=== PATIENT | male | born 1935 | race Caucasian/White ===

== ENCOUNTER → 2024-07-21 13:37 | Outpatient (REF) | payer OTHER, SELFPAY | LOC: RAD 13:37 | PROVIDERS: ATTENDING PHYSICIAN Nurse Practitioner Family | DX: M25.512 Pain in left shoulder (principal) | CPT/HCPCS: 73030 ==

== ENCOUNTER 2024-09-25 20:00 | Inpatient (IN) | payer OTHER, SELFPAY ==
[2024-09-25 15:21] VITALS: BP 155/79
[2024-09-25] MEDS: MORPHINE SULFATE 4 MG IV ×2 (16:18→19:01)
[2024-09-25 16:37] LABS: % Basophils 0.4 % (0-2); % Eosinophils 1.2 % (0-6); % Immature Granulocytes 0.6 % (0-0.5); % Lymphocytes 7.9 % (20.5-51.1); % Monocytes 8.4 % (1.7-9.3); % Neutrophils 81.5 % (42.2-75.2); Absolute Eosinophils 0.1 10^3/uL (0-0.7); Absolute Immature Granulocytes 0.1 10^3/uL (0-0.05); Absolute Lymphocytes 0.9 10^3/uL (1.2-3.4); Absolute Monocytes 0.9 10^3/uL (0.1-0.6); Absolute Neutrophils 8.9 10^3/uL (1.4-6.5); Hematocrit 39.5 % (39.0-52.0); Hemoglobin 13.5 g/dL (13.0-18.0); Mean Corp Hgb Conc. 34.2 g/dL (33.0-37.0); Mean Corpuscular Hgb 31.8 pg (27.0-31.0); Mean Corpuscular Volume 92.9 fL (80.0-94.0); Mean Platelet Volume 10.8 fL (7.4-10.4); Nucleated Red Blood Cells % 0 % (-); Platelet Count 259 10^3/uL (130-400); Red Blood Cell Count 4.25 10^6/uL (4.70-6.10); White Blood Cell Count 10.9 10^3/uL (4.8-10.8)
--- NOTE | 2024-09-25 16:39 | ED.GENMED ---
History of Present Illness
General
Chief Complaint: Musculo-Skeletal Complaint
Source: patient, spouse and family
Exam Limitations: none
Time Seen by Provider: 09/25/24 16:12
History of Present Illness
History of Present Illness:
This an 89-year-old male who presents after a fall at home. Patient states he does not really know what happened but was sitting outside and then realized he was on the ground. He states he did remember trying to get up. He states once he was on
the ground he had somewhat difficulty. He thinks he did hit his head. He cannot really recall whether he passed out or not. No chest pain. Does report left shoulder pain. Denies neck or head pain. No vomiting. No motor weakness.
Past History
Past History
ED Past Medical History: CAD, Cancer (Rectal CA, Skin CA), Hypercholesterolemia, [place] and Other (Renal calculus, Glaucoma, )
ED Past Surgical History: Cholecystectomy, Orthopedic (Right knee tear, Left shoulder surgery) and Other (Stent artery, Nodules removed from neck)
Social History
Tobacco: Smoker
Alcohol: None
Personal:
Living: with family
Phy Exam
Physical Exam
Physical Exam:
CONSTITUTIONAL Patient alert and oriented to person, place and time. Well-appearing. Vital signs reviewed.
HEAD atraumatic, normocephalic.
EYES eyelids normal to inspection, Extraocular muscles intact, Conjunctiva normal, Sclera normal.
NECK normal range of motion, Trachea midline, no jugular venous distention. No midline tenderness
RESPIRATORY CHEST No respiratory distress noted, Chest expansion equal, Bilateral breath sounds clear. No chest wall tenderness
CARDIOVASCULAR regular rate and rhythm, Heart sounds normal.
ABDOMEN abdomen nontender, Bowel sounds normal. No distention.
UPPER EXTREMITY Motor strength normal, no cyanosis, no edema. Marked swelling at the left shoulder joint with fluctuance suspicious for hemarthrosis. Unable to range the left shoulder due to deformity and pain. Obvious deformity. Small
abrasion to the left elbow
LOWER EXTREMITY range of motion normal (normal internal and external rotation of the hip bilaterally. Normal flexion of the hips), Motor strength normal, no cyanosis, no edema.
NEURO Speech normal, No focal motor deficits, Salma coma scale 15, Memory normal, Cranial Nerves intact to screening exam.
SKIN skin warm, dry, and normal in color.
Course
Orders/Labs/Results
Orders:
Orders
09/25/24 15:28
CR Shoulder, Trauma - Left Urgent
Reason For Exam: pain/injury
09/25/24 16:13
Morphine Sulfate 4 mg .ROUTE .STK-MED ONE
09/25/24 16:18
Morphine Sulfate 4 mg IV NOW STA
09/25/24 16:22
CBC/With Diff [Complete Blood Count/With Diff] Urgent
CMP [Comprehensive Metabolic Panel] Urgent
09/25/24 16:38
Electrocardiogram (*1) Urgent
Reason for Study: Syncope
CT Head W/o Iv Contrast Urgent
Comment:
Reason For Exam: fall, ? syncope
EKG- Treatment ONCE
Sling Left-Treatment ONCE
09/25/24 16:41
CR Elbow - Left Min 2 View Urgent
Reason For Exam: fall
09/25/24 18:58
Morphine Sulfate 4 mg IV NOW STA
09/25/24 19:39
Admit/Transfer Patient As Directed
Co-Sign Provider:
Level of Care: Inpatient admission
Assign to:: Telemetry
Physician / Group: Kevin
Diagnosis: Left Shoulder Fx
Reason for Telemetry: Syncope
Date to Stop Telemetry: 09/27/24
Time to Stop Telemetry: 11:00
Reason for Hospitalization: Ortho Consult, Syncope work-up
Expected length of stay greater than two midnights?: Yes
ELOS- Estimated Length of Stay in days: 3
I certify the patient meets the requirements for IP care: Yes
PRN Pain Medication Management As Directed
May give lesser potent ordered pain med per pt: Yes
preference::
Protocol:: Medication orders for pain may be administered in a
manner that supports deferring to patient preference
when the pt is:
- Requesting an ordered lesser potent pain medication.
Least to most potent pain medications are defined
as: acetaminophen < NSAID < tramadol < opioids
(morphine, oxycodone, hydromorphone).
- Requesting a lesser dose of the same medication IF
ORDERED.
- Requesting a less intrusive route of administration
if both routes are prescribed by the provider (PO <
IV).
09/25/24 19:41
CT Upper Ext W/o Iv Cont Lt Urgent
Comment: ortho request
Reason For Exam: humerus fracture
09/25/24 19:42
Code Status As Directed
Resuscitation Status: Full Code
09/27/24 11:00
DC Protocol for Telemetry ONCE
Abnormal Lab Results
09/25/24
16:22
WBC 10.9 H 10^3/uL
(4.8-10.8)
RBC 4.25 L 10^6/uL
(4.70-6.10)
MCH 31.8 H pg
(27.0-31.0)
MPV 10.8 H fL
(7.4-10.4)
Abs Immat Gran (auto) 0.1 H 10^3/uL
(0-0.05)
Absolute Neuts (auto) 8.9 H 10^3/uL
(1.4-6.5)
Absolute Lymphs (auto) 0.9 L 10^3/uL
(1.2-3.4)
Absolute Monos (auto) 0.9 H 10^3/uL
(0.1-0.6)
Immature Gran % 0.6 H %
(0-0.5)
Neutrophils % 81.5 H %
(42.2-75.2)
Lymphocytes % 7.9 L %
(20.5-51.1)
Glucose 126 H mg/dl
(70-99)
09/25/24 16:22
09/25/24 16:22
Vital Signs
Initial and Last Documented VS:
Initial Vital Signs
Temp Pulse Resp BP Pulse Ox
98.4 F 62 22 155/79 99
09/25/24 15:21 09/25/24 15:21 09/25/24 15:21 09/25/24 15:21 09/25/24 15:21
Last Documented Vital Signs
Temp Pulse Resp BP Pulse Ox
98.4 F 82 16 145/75 98
09/25/24 15:21 09/25/24 19:30 09/25/24 19:30 09/25/24 19:02 09/25/24 19:30
MDM/Problems Addressed
MDM/Problems Addressed:
Humeral fracture, possible syncope
*Radiology
Radiology exam reviewed: preliminary read by ED provider (Obvious humeral fracture)
*Pulse Oximetry
Patient hypoxic: no
*EKG
Interpreted by ED Provider?: Yes
Interpretation: normal
Comparison EKG: no comparison EKG present
Rate: normal
Rhythm: sinus
[place]: normal axis
Interval: first degree heart block
Ischemia: no ischemia
*Aged Or Disabled Care Worker Interpretation
Rate: normal
Interpretation: normal
Rhythm: sinus
*Critical Care Note
Total Time (30-74mins, 75-104mins- exclusive of procedures): Not Applicable
Data Reviewed
Source: patient and family
Further Testing Considered But Not Given:
Consider neck CT but no midline tenderness
Patient Management
Discussion with other providers: Hospitalist and [employer] (Case discussed with Dr. Rubalcava)
Escalation/DeEscalation of care consider admission/obs:
Patient unable to move in the bed without significant pain. Unable to get up. Uses a cane and walker at home. Will likely need some PT and orthopedic evaluation. Dr. Rubalcava recommends CT.
ED Attending Note
-
Portions of this chart may have been created with voice recognition software.� Occasional wrong word or��sound alike� substitutions may have occurred due to the inherent limitations of voice recognition software.
Discharge Plan
Departure
Patient Disposition: Admit
Date of Disposition: 09/25/24
Time of Disposition: 19:06
Admit to: Telemetry
Presentation/result/management discussed w/ accepting MD/DO: Hospitalist
Discharge Problem:
Syncope, Fracture, humerus closed
Prescriptions:
No Action
metoprolol tartrate 25 MG tablet
25 mg PO BID
latanoprost 1 DROP drops
1 drp BOTH EYES HS
ascorbic acid (vitamin C) [Vitamin C] 500 MG tablet
500 mg PO DAILYPRN PRN (Reason: Supplement)
coenzyme Q10 50 MG tablet,chewable
50 mg PO DAILYPRN PRN (Reason: Supplement)
vitamin B complex Capsule
1 cap PO DAILYPRN PRN (Reason: Supplement)
omega 8-mui-crj-fish oil [Fish Oil] 1,000 mg (120 mg-180 mg) Capsule
1 cap PO DAILYPRN PRN (Reason: Supplement)
cholecalciferol (vitamin D3) 25 mcg (1,000 unit) Tablet
25 mcg PO DAILYPRN PRN (Reason: Supplement)
Referrals:
Jarrett Willis MD [Family Provider] -
Interventions
Interventions:
*Risk Screen - Suicide Last Done: 09/25/24 15:21
*General Assessment Last Done: 09/25/24 15:21
*Neglect/Abuse Screening Last Done: 09/25/24 15:21
*ED COVID-19 Vaccine History Last Done: 09/25/24 17:21
ED-Musculoskeletal Assessment Last Done: 09/25/24 17:21
Discharge Date and Time
Print Language: MONGOLIAN
[2024-09-25 16:47] LABS: ALT (SGPT) 20 U/L (0-50); AST (SGOT) 28 U/L (17-59); Albumin 4.2 g/dl (3.5-5.0); Alkaline Phosphatase 74 U/L (38-126); Blood Urea Nitrogen 13 mg/dl (9-20); Calcium 9.4 mg/dl (8.4-10.2); Carbon Dioxide 22 mmol/L (22-30); Chloride 104 mmol/L (98-107); Estimated Creatinine Clearance 60 ml/min; Glucose 126 mg/dl (70-99); Potassium 3.8 mmol/L (3.5-5.1); Sodium 140 mmol/L (135-145); Total Bilirubin 0.6 mg/dl (0.2-1.3); Total Protein 6.6 g/dl (6.3-8.2); eGFR > 60.00
[2024-09-25 18:00] VITALS: BP 143/89
[2024-09-25 19:02] VITALS: BP 145/75
--- NOTE | 2024-09-25 19:18 | HPS.HSE ---
Family Physician
-
Family Physician: Jarrett Willis
Chief Complaint
-
Fall with Left Shoulder Pain
History of Present Illness
Patient is an 89 y/o male past medical history of coronary artery disease, hypertension, hyperlipidemia, rectal and lung cancer who presents with left shoulder pain following a fall. Patient reports he was on the patio and had finished smoking a
cigarette. He doesn't remember much about about the fall and thinks he may have blacked out. He reports waking up while he was falling and knew he as going to hit the concrete. Following the fall he developed significant left shoulder pain. He
denies any preceding chest pain, palpitations, lightheadedness or dizziness.
Medical History
Past Medical History
Past Medical History: Reports Other
Additional Past Medical History:
Coronary Artery Disease s/p Stent
Essential Hypertension
Hyperlipidemia
Hx Rectal CA s/p chemo and radiation
Hx Oracio CA s/p radiation
Hx E. coli Bacteremia secondary to Ascending Cholangitis
Past Surgical History: Reports Other
Additional Past Surgical History:
Cardiac Stent
Cholecystectomy
Right Knee Tear
Left Shoulder Surgery
Left Shoulder/Back Lumpectomy
Throat Nodes
Social History
Tobacco: Smoker (6-8 cigarettes per day)
Alcohol: Occasional
Family History
Family History: Not pertinent
Allergies / Home Medications
Allergies reflects when Allergies were last updated in [employer].
Home Medications with original date entered in [employer]
Allergy/Medication List:
Allergies
Allergy/AdvReac Type Severity Reaction Status Date / Time
aloe vera [Aloe Vera] Allergy HIVES, Verified 09/25/24 15:21
SWELLING
Penicillins Allergy Hives/SWELL Verified 09/25/24 15:21
ING
Home Medications
latanoprost 0.005 % eye drops 1 drp BOTH EYES HS Eye condition 07/16/21
metoprolol tartrate 25 mg tablet 25 mg PO BID Blood pressure 07/16/21
ascorbic acid (vitamin C) 500 mg tablet (Vitamin C) 500 mg PO DAILYPRN PRN Supplement 04/20/22
coenzyme Q10 50 mg chewable tablet 50 mg PO DAILYPRN PRN Supplement 04/20/22
omega 2-ytn-woo-fish oil 1,000 mg (120 mg-180 mg) capsule (Fish Oil) 1 cap PO DAILYPRN PRN Supplement 04/20/23
vitamin B complex 1 cap PO DAILYPRN PRN Supplement 04/20/23
cholecalciferol (vitamin D3) 25 mcg (1,000 unit) tablet 25 mcg PO DAILYPRN PRN Supplement 09/25/24
Review of Systems
-
A 12 point ROS was completed and negative except as noted: Yes
Constitutional: Denies Fever or Chills
Respiratory: Denies Cough or Trouble Breathing
Cardiac: Denies Chest Pain or Palpitations
Abdomen/GI: Reports Constipated; Denies Abdominal Pain, Nausea, Vomiting or Diarrhea
Physical Exam
Vital Signs
Vital Signs
Temp Pulse Resp BP Pulse Ox
98.4 F 82 20 145/75 97
09/25/24 15:21 09/25/24 19:05 09/25/24 19:05 09/25/24 19:02 09/25/24 19:05
Physical Exam
General: Conversant and Pain (With Movement)
HEENT: Anicteric and Moist mucous membranes
Respiratory: Clear and Non Labored Respirations
Cardiac: S1/S2 and Regular Rhythm
GI: Soft and Non Tender
Musculoskeletal: No Clubbing, No Cyanosis and Edema, Left Upper Extremity
Skin: Warm and Dry
Neuro: Awake, Oriented and Nonfocal/grossly intact
Psych: Calm
Laboratory Results
-
09/25/24 16:22
09/25/24 16:22
Laboratory Results
Total Bilirubin 0.6 mg/dl (0.2-1.3) 09/25/24 16:22
AST 28 U/L (17-59) 09/25/24 16:22
ALT 20 U/L (0-50) 09/25/24 16:22
Alkaline Phosphatase 74 U/L (38-126) 09/25/24 16:22
Impression/Plan
-
Proximal Left Humerus Fracture
-Consult Ortho
-Continue NWB and immobilization with sling
-Will keep NPO after midnight should patient require OR tomorrow
-Continue Tylenol, Oxycodone and Dilaudid for pain
Fall, possible Syncopal Episode
-Monitor on Telemetry
-Check Echo
-Check Orthostatic VS
Coronary Artery Disease s/p Stent
Essential Hypertension
-Continue metoprolol with hold parameters
Hyperlipidemia
-Patient is intolerant to statins
Hx Rectal Cancer s/p Chemotherapy and Radiation
Hx Lung Cancer s/p Radiation
DVT proph: SCDs
Code Status: Full Code
[2024-09-25 20:09] VITALS: BP 128/78
--- NOTE | 2024-09-25 20:47 | W.PN.UPDATE ---
Update Note
Progress Note Update
Patient seen in conjunction with DENTURE PACKER. I agree with findings on history and physical. Concur with the assessment and plan unless stated otherwise.
This is an 89-year-old male with no known symptom past medical history except for hypertension for which she takes metoprolol presenting to the emergency department with explained fall from standing height and unfortunate displaced left humeral
fracture. Patient apparently was standing outside smoking when all of a sudden he found himself collapsing to the floor. He denies any palpitations chest pain lightheadedness or dizziness prior to this episode. There was no postictal state. He
was able to get himself up but does not remember exactly what happened. Patient denies history of syncope. Denies any recent episodes of palpitations, chest pain, decreased p.o. intake diarrhea nausea or vomiting. He has no fevers or chills.
Denies any urinary symptoms. No known cardiac history. No known significant family history.
In the emergency department he was hemodynamically stable with a normal blood pressure afebrile with normal oxygen on room air. ECG showed normal sinus rhythm with rate of 77 with 4 degree AV block and no ischemic changes. CT of the head was
unremarkable. Had a x-ray which showed a left displaced humeral fracture. CBC shows slight leukocytosis but otherwise unremarkable.
Assessment and plan
Displaced humeral fracture - fall from standing height in setting of possible syncope
- admitting to telemetry
- ortho consulted
- no weight bearing for now
- NPO after midnight
- hydration
- dvt ppx
- pain control and pt eval
Syncope - H/o CAD s/p stenting. Vasovagal versus orthostatic. Can't rule out arrythmic.
- telemetry x 24 hours,
- trend trops
- echo
- orthostatic vs daily
Code status - Full Code
[2024-09-25 21:58] VITALS: BP 123/70; BMI 29.2
[2024-09-25] MEDS: NSS 1000 IV (22:00)
[2024-09-25] MEDS: TYLENOL 1000 MG PO (22:30)
[2024-09-25] MEDS: LOPRESSOR 25 MG PO (22:30)
--- NOTE | 2024-09-25 22:30 | PTCARENOTE ---
Patient is an 89 y/o male past medical history of coronary artery disease, hypertension, hyperlipidemia, rectal and lung cancer who presents with left shoulder pain following a fall. Patient has a Left Shoulder FX, arrived at 21:45 with arm in a
sling. Pt AOx3, bed in a low postion, call light in reach, care ongoing.
[2024-09-26] VITALS (12 sets, daily range): BP systolic 103–127; BP diastolic 56–73
[2024-09-26] MEDS: DILAUDID 0.25 MG IV ×2 (01:15→12:57)
[2024-09-26 05:37] LABS: Hematocrit 34.6 % (39.0-52.0); Hemoglobin 11.8 g/dL (13.0-18.0); Mean Corp Hgb Conc. 34.1 g/dL (33.0-37.0); Mean Corpuscular Hgb 32.4 pg (27.0-31.0); Mean Corpuscular Volume 95.1 fL (80.0-94.0); Mean Platelet Volume 11.4 fL (7.4-10.4); Platelet Count 223 10^3/uL (130-400); Red Blood Cell Count 3.64 10^6/uL (4.70-6.10); Red Cell Dist. Width 12.9 % (11.5-14.5); White Blood Cell Count 8.8 10^3/uL (4.8-10.8)
[2024-09-26 06:03] LABS: Blood Urea Nitrogen 13 mg/dl (9-20); Calcium 8.5 mg/dl (8.4-10.2); Carbon Dioxide 20 mmol/L (22-30); Chloride 108 mmol/L (98-107); Estimated Creatinine Clearance 68 ml/min; Glucose 122 mg/dl (70-99); Sodium 141 mmol/L (135-145); eGFR > 60.00
--- NOTE | 2024-09-26 07:03 | CON.ORTHO ---
Consultation
-
Date/Time Consultation Requested: 09/25/24, time unknown
Date/Time Consultation Performed: 09/26/24 @6:45am
Requesting Provider: Jaimie Cross
Performing Provider: Nuha London PA-C
Reason for Consultation: left proximal humerus fracture
Consultation - Orthopedics
History
HPI: 89yo male admitted to [facility] following a fall yesterday. He reports that he was out on his deck and somehow fell, landing on his left arm. He does not recall the specifics of the fall and is not sure if he passed out. He reports
pain in the left arm and inability to move the arm. He is currently in a sling. He is right hand dominant. He is not on any blood thinners. He reports that he has tolerated anesthesia well in the past
PAST MEDICAL HISTORY: CAD, HTN, HLD, history of rectal and lung cancer
PAST SURGICAL HISTORY: cardiac stent, cholecystectomy, left shoulder surgery, right knee surgery, back/left shoulder lumpectomy, throat nodes
SOCIAL HISTORY: +tobacco (6-7 cigarettes per day), occasional alcohol, ambulates with walker/cane
FAMILY HISTORY: Noncontributory
REVIEW OF SYSTEMS: 12 point review of systems obtained and negative except those mentioned in the HPI
Allergies / Home Medications
Allergy/AdvReac Type Severity Reaction Status Date / Time
aloe vera [Aloe Vera] Allergy HIVES, Verified 09/25/24 15:21
SWELLING
Penicillins Allergy Hives/SWELL Verified 09/25/24 15:21
ING
�Medication �Instructions �Recorded
latanoprost 0.005 % eye drops 1 drp BOTH EYES HS Eye condition 07/16/21
metoprolol tartrate 25 mg tablet 25 mg PO BID Blood pressure 07/16/21
ascorbic acid (vitamin C) 500 mg 500 mg PO DAILYPRN PRN Supplement 04/20/22
tablet (Vitamin C)
coenzyme Q10 50 mg chewable tablet 50 mg PO DAILYPRN PRN Supplement 04/20/22
omega 9-uoa-vgd-fish oil 1,000 mg 1 cap PO DAILYPRN PRN Supplement 04/20/23
(120 mg-180 mg) capsule (Fish Oil)
vitamin B complex 1 cap PO DAILYPRN PRN Supplement 04/20/23
cholecalciferol (vitamin D3) 25 25 mcg PO DAILYPRN PRN Supplement 09/25/24
mcg (1,000 unit) tablet
Vital Signs / Lab Results
Temp Pulse Resp BP Pulse Ox
97.8 F 69 20 125/58 94
09/26/24 03:01 09/26/24 03:01 09/26/24 03:01 09/26/24 03:01 09/26/24 03:01
09/26/24 04:40
09/26/24 04:40
RADIOGRAPHIC FINDINGS:
Xrays left shoulder show displaced fracture of the proximal left humerus, and fracture line appears to be through the region of the surgical neck. Displacement and angulation as described. Somewhat limited visualization of the fracture.
CT Left Upp Extremity shows slightly comminuted surgical neck fracture. Anterior displacement and 5 cm proximal overriding of the humeral metaphysis relative to the humeral head, which remains in articulation with the glenoid. The humeral head is
rotated counterclockwise. There is anterior angulation between the proximal humerus and humeral head. No glenoid or scapular fracture. No clavicular fracture.
PHYSICAL EXAM:
General: no acute distress
HEENT: NCAT, sclera anicteric, normal hearing
Heart: No JVD
Lungs: Normal work of breathing on room air
MSK: Focused exam of left shoulder reveals skin intact. +Edema. +TTP generally about the shoulder. ROM deferred. Pain with elbow range of motion. Able to perform range of motion of wrist and fingers. Sensation intact to light touch. Cap refill <2secs
Assessment / Plan
ASSESSMENT: 89yo male with left displaced proximal humerus fracture
PLAN: Unfortunately, Mr. Puckett has sustained a displaced left proximal humerus fracture. Recommend operative fixation. The risks, benefits, and potential complications were reviewed with the patient. He has agreed to proceed with left reverse
total shoulder arthroplasty under the direction of Dr. May. Will plan for OR later today given the patient is medically cleared. He is to remain NPO. Surgical consent obtained and placed on patient's chart. Antibiotics and irrigation companion caregiver to
OR. Non weight bearing to left arm. Continue with pain control as needed. Will continue to follow along.
[2024-09-26] MEDS: MIRALAX 17 GRAMS PO (09:00)
[2024-09-26] MEDS: LOPRESSOR 25 MG PO ×2 (09:00→20:53)
[2024-09-26] MEDS: TYLENOL 1000 MG PO ×2 (09:01→22:18)
--- NOTE | 2024-09-26 09:19 | CON.CAR ---
Addendum entered and electronically signed by Fred Hudson MD 09/26/24 14:18:
Echo today is technically limited with poor image quality. Overall LVF appears normal but wall motion analysis is limited due to image quality
Addendum entered and electronically signed by Fred Hudson MD 09/26/24 14:14:
I saw and examined the patient.
The RUSTIC FENCE BUILDER's note was reviewed and I agree with the note.
Primary music video producer is Dr Welch.
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 Patient fell and sustain humerus fracture. It
seems he fell shortly after getting out of chair. Unwitnessed. Unclear if this was a syncopal event. Not he uses a cane at [place]. He had a significant fall a little over a year ago . He got up from dinner table and was holding plates and did not
use his cane and fell. Patient pre op form left humerus fx.
Pre op assessment .- patient with increased risk due to advanced age and history of CAD. Currently without angina, ECG and telemetry are stable and no evidence of decompensated HF. Considering importanceof addressing fracture it is reasonable to
proceed with surgery understanding increased rsik.
- monitor on telemetry
- continue BB
.
Fall. Appears to have some increased fall risk . Can not exclude syncope. ECG with sinus and first degre AVB with [place] 212.
-- if he remains stable on telemetry , will plan for 2 week outpatient promotional marketing agent
Original Note:
Consultation
Consultation Request
Date/Time Consultation Requested: 09/26/2024 08:50
Date/Time Consultation Performed: 09/26/2024 09:20
Requesting Provider: Dr. James
Performing Provider: AINSLEY Valenzuela for Dr. Hudson
Reason for Consultation: Syncope
Medical History
-
Chief Complaint: Left shoulder pain
History of Present Illness:
Fred Puckett is an 89 year old male (known to Dr. 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
CAT scans, colorectal cancer status post chemotherapy/XRT (Dr. Serrano, [facility]), prediabetes, current smoker, and chronic lacunar infarct on CT presented to the emergency department after an episode of syncope. He was found to have a left humeral
fracture. He is going to the OR with orthopedics for surgery this afternoon. He is on the hospitalist service and cardiology was consulted for syncope. Yesterday, he just finished smoking a cigarette. He was in his seated position. He stood up
he does not recall the sensation of dizziness, nausea, or feeling warm. He recalls falling down. He does not think he stood up too fast because sometimes when he does he gets dizziness. He did not lose consciousness. He did not hit his head.
Telemetry stable. No chest pain
Past Medical History
Past Medical History: CAD, Cancer (Left lung adenocarcinoma [XRT 2019], colorectal cancer [XRT/chemotherapy]), CVA (Seen on CT [lacunar infarct]), HTN and Hypercholesterolemia (Statin tolerance)
Past Surgical History: Cholecystectomy, Orthopedic and Urological
Social History
Tobacco: Smoker
Alcohol: Occasional
Personal:
Living: With Family ()
Employment: Retired
Family History
Family History: Reviewed & Not Pertinent
Allergies / Home Medications
Allergy/AdvReac Type Severity Reaction Status Date / Time
aloe vera [Aloe Vera] Allergy HIVES, Verified 09/25/24 15:21
SWELLING
Penicillins Allergy Hives/SWELL Verified 09/25/24 15:21
ING
�Medication �Instructions �Recorded �Confirmed �Type
latanoprost 0.005 % eye drops 1 drp BOTH EYES HS Eye condition 07/16/21 09/25/24 History
metoprolol tartrate 25 mg tablet 25 mg PO BID Blood pressure 09/15/21 11/25/24 History
ascorbic acid (vitamin C) 500 mg 500 mg PO DAILYPRN PRN Supplement 04/20/22 09/25/24 History
tablet (Vitamin C)
coenzyme Q10 50 mg chewable tablet 50 mg PO DAILYPRN PRN Supplement 04/20/22 09/25/24 History
omega 3-mgx-sqt-fish oil 1,000 mg 1 cap PO DAILYPRN PRN Supplement 04/20/23 09/25/24 History
(120 mg-180 mg) capsule (Fish Oil)
vitamin B complex 1 cap PO DAILYPRN PRN Supplement 04/20/23 09/25/24 History
cholecalciferol (vitamin D3) 25 25 mcg PO DAILYPRN PRN Supplement 09/25/24 09/25/24 History
mcg (1,000 unit) tablet
Review of Systems
-
History Source: Patient
All other systems: Negative unless noted
Constitutional: No Symptoms
EENT: No Symptoms
Respiratory: No Symptoms
Cardiac: No Symptoms
Abdomen/GI: No Symptoms
: No Symptoms
Musculoskeletal: Joint Pain (left arm)
Skin: No Symptoms
Neurological: No Symptoms
Endocrine: No Symptoms
Hematologic/Lymphatic: No Symptoms
Physical Exam
Vital Signs
Temp Pulse Resp BP Pulse Ox
97.9 F 71 18 123/66 95
09/26/24 08:04 09/26/24 08:04 09/26/24 08:04 09/26/24 08:04 09/26/24 08:04
Lab Results
09/26/24 04:40
09/26/24 04:40
Physical Exam
General: Well Developed, Well Nourished, No Apparent Distress and Comfortable
HEENT: Normocephalic, Anicteric and Moist Mucous Membranes
Respiratory: Clear and Non Labored Respirations
Cardiac: S1/S2 and Regular Rhythm
Breast: Deferred by me
GI: Soft, Non Tender, Non Distended and Normal Bowel Sounds
Rectal: Deferred by Provider
Genito-urinary: No Costovertebral Tender
Musculoskeletal: No Clubbing, No Cyanosis and No Edema
Skin: Warm and Dry
Neuro: AO x 3
Hematologic/Lymphatic: No Lymphadenopathy
Psych: Calm
Impression / Plan
-
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
(Dr. Serrano, [facility]), prediabetes, current smoker, and chronic lacunar infarct on CT presented with syncope and found to have a left humeral fracture
Primary Motor Vehicle License Clerk: Dr. Welch
Syncope
-Telemetry stable
-EKG with first-degree AV block
-Echocardiogram
-Orthostatic vital signs
Humeral fracture, left - OR today per Ortho
CAD
-Stable without CP
-2006: NSTEMI with BMS to dRCA ([facility])
-Not on daily ASA, 324mg x 1 now and 81mg daily
HLD, statin intolerant
Adenocarcinoma of the left lung, s/p XRT, still present on chest CT in 2022
Colorectal cancer status post chemotherapy/XRT
Prediabetes
Current smoker, cessation recommended
Lacunar infarct, chronic, seen on head CT
DATA:
Transthoracic echocardiogram, 07/2020:
CONCLUSIONS
Normal biventricular size and systolic function without regional wall motion
abnormality.
No significant valvular disease.
Normal echocardiogram.
No prior study available for comparison.
Data Reviewed
-
EKG: Report Reviewed by me (Sinus rhythm, first-degree AV block, rate 72)
Medical Tests (Nuc Med, Echo etc): Report Reviewed by me (Prior echocardiogram as above)
Labs: Labs Reviewed by me
Old Records: Reviewed
[2024-09-26] MEDS: ROXICODONE 5 MG PO (09:22)
[2024-09-26] MEDS: LOW STRENGTH ASPIRIN 324 MG PO (10:27)
--- NOTE | 2024-09-26 10:59 | W.PN.HOSP.TC ---
Today's Communication/Plan
-
Cardio consult
Echocardiogram
Surgical intervention to follow
Assessment / Plan
Assessment / Plan
Proximal Left Humerus Fracture
-Consulted Ortho
potential surgical input this afternoon
-Continue NWB and immobilization with sling
-Will keep NPO pending planned surgery
-Continue Tylenol, Oxycodone and Dilaudid for pain
Fall, possible Syncopal Episode
-Monitor on Telemetry
-Check Echo
-Check Orthostatic VS
Cardio consult will be requested. Echocardiogram ordered
Coronary Artery Disease s/p Stent
Essential Hypertension
-Continue metoprolol with hold parameters
Hyperlipidemia
-Patient is intolerant to statins
Hx Rectal Cancer s/p Chemotherapy and Radiation
Hx Lung Cancer s/p Radiation
DVT proph: SCDs
Code Status: Full Code
Anticipated Discharge: > 48 hours
Subjective/Interval History
-
Date of Service: September 26, 2024
Still with left shoulder pain
Objective Data
-
Labs:
Laboratory Results
09/26/24
04:40
WBC 8.8
Hgb 11.8 L
Hct 34.6 L
Plt Count 223
Sodium 141
Potassium 4.0
Chloride 108 H
Carbon Dioxide 20 L
BUN 13
Creatinine 0.8
Glucose 122 H
Calcium 8.5
Vital Signs:
Vital Signs
Temp Pulse Resp BP Pulse Ox
97.9 F 71 18 123/66 95
09/26/24 08:04 09/26/24 09:00 09/26/24 08:04 09/26/24 09:00 09/26/24 08:04
I&O
09/25/24 09/26/24 09/27/24
06:59 06:59 06:59
Intake Total 960 / 960
Output Total 500 / 500
Balance 460 / 460
Review of Systems
-
History Source: Patient and Coordinated Provider
Constitutional: Denies Fever
EENT: Reports No Symptoms Reported
Respiratory: Reports No Symptoms
Cardiac: Reports No Symptoms
Abdomen/GI: Reports No Symptoms
Musculoskeletal: Reports Joint Pain (left shoulder)
Physical Exam
-
General: Well Developed, Well Nourished and No Apparent Distress
HEENT: Normocephalic, Atraumatic and Moist Mucous Membranes
Respiratory: Clear to Auscultation; Negative Wheezes, Rales or Rhonchi
Cardiac: Regular Rhythm and S1/S2
GI: Soft, Nontender and Nondistended
Musculoskeletal: No Clubbing, No Cyanosis and No Edema
Neuro: Awake, Alert and Oriented
--- NOTE | 2024-09-26 11:15 | CM ---
Met with pt at bedside
Pt reports he lives with his in a 1 story condo; 1 step to enter, FF set-up
Reports independent at baseline, ambulates with single point cane, does meals/cleaning, no longer drives
DME - single point cane, rolling walker
SNF - [facility] in past
HH - past - unsure of agency
Has ride at discharge -
PCP - Jar[facility]
Pharm - [facility]
Pt will require surgical intervention - pre-op work up
PT/OT post-op
Plan - TBD post op. CM will follow for needs
--- NOTE | 2024-09-26 13:55 | CARDSERVLU ---
Echocardiogram with [facility] completed after protocol screening completed. Allergies verified.
Patent IV site: ___Rt AC__
IV site flushed with 0.9% NaCl pre and post administration.
Diluted bolus method utilized to enhance visualization of ventricular mosquera.
Total volume given: ___4.0_ mL
Patient tolerated all procedures well without complications.
[2024-09-26] MEDS: TYLENOL PO (17:14)
--- NOTE | 2024-09-26 18:48 | W.PN.UPDATE ---
Update Note
Progress Note Update
89-year-old male status post left reverse total shoulder arthroplasty for a proximal humerus fracture with Dr. May
-Sling to left upper extremity, nonweightbearing
-PT/OT/discharge planning
-Aquacel dressing in place
-81 mg twice daily aspirin x 4 weeks unless recommended otherwise per primary
-Regular diet unless otherwise recommended per primary
-Pain regimen on board
-100 mg doxycycline twice daily x 3 days for infection prophylaxis
--- NOTE | 2024-09-26 20:30 | PTCARENOTE ---
Pt returned from PACU for left reverse TSA to repair fracture. Returned to 2S at 20:30 arm in a sling, antibacterial dressing in place. Bed in a low position call light in reach.
[2024-09-26] MEDS: LOW STRENGTH ASPIRIN 81 MG PO (20:52)
[2024-09-26] MEDS: VIBRAMYCIN 100 MG PO (20:52)
[2024-09-26] MEDS: XALATAN OPHTHALMIC SOLUTION 1 DROP BOTH EYES (22:18)
[2024-09-27] VITALS (9 sets, daily range): BP systolic 94–127; BP diastolic 55–76; PULSE 84–113; O2SAT 93
--- NOTE | 2024-09-27 04:00 | DOWNTIME ---
There was a Clerk Client Fundraising Director Downtime on 09/27/2024 from 0100 to 09/27/2024 at 0350. Downtime documentation of patient's care, including medication administrations, has been reconciled in the electronic record per guidelines. Refer to the
patient's paper chart under the miscellaneous tab to see printed paper medication records and downtime forms.
[2024-09-27 06:42] LABS: % Basophils 0.1 % (0-2); % Immature Granulocytes 0.4 % (0-0.5); % Lymphocytes 4.8 % (20.5-51.1); % Monocytes 4.6 % (1.7-9.3); % Neutrophils 90.1 % (42.2-75.2); Absolute Lymphocytes 0.5 10^3/uL (1.2-3.4); Absolute Monocytes 0.4 10^3/uL (0.1-0.6); Absolute Neutrophils 8.7 10^3/uL (1.4-6.5); Hematocrit 32.4 % (39.0-52.0); Hemoglobin 11.3 g/dL (13.0-18.0); Mean Corp Hgb Conc. 34.9 g/dL (33.0-37.0); Mean Corpuscular Hgb 32.6 pg (27.0-31.0); Mean Corpuscular Volume 93.4 fL (80.0-94.0); Mean Platelet Volume 11.6 fL (7.4-10.4); Nucleated Red Blood Cells % 0 % (-); Platelet Count 217 10^3/uL (130-400); Red Blood Cell Count 3.47 10^6/uL (4.70-6.10); White Blood Cell Count 9.6 10^3/uL (4.8-10.8)
[2024-09-27 07:07] LABS: Blood Urea Nitrogen 16 mg/dl (9-20); Calcium 8.4 mg/dl (8.4-10.2); Carbon Dioxide 23 mmol/L (22-30); Chloride 106 mmol/L (98-107); Estimated Creatinine Clearance 68 ml/min; Glucose 155 mg/dl (70-99); Sodium 139 mmol/L (135-145); eGFR > 60.00
--- NOTE | 2024-09-27 07:12 | W.PN.ORTHO ---
Today's Communication / Plan
-
89-year-old male POD1 left reverse total shoulder arthroplasty for a proximal humerus fracture with Dr. May
--Sling to left upper extremity, nonweightbearing. PT/OT/discharge planning.
--Maintain surgical dressing until post-op visit.
--81 mg twice daily aspirin x 4 weeks unless recommended otherwise per primary.
--Regular diet unless otherwise recommended per primary.
--Continue pain control prn.
--100 mg doxycycline twice daily x 3 days for infection prophylaxis.
--Case management consult for discharge planning. Orthopedics will continue to follow along.
Assessment
.
Distal Motor Intact: Yes
Dressing:
Clean, dry and intact.
Plan
.
Surgery / Date: Left reverse TSA, [place], 09/26
DVT Prophylaxis: Aspirin
Activity:
Out of bed.
PT/OT
Subjective
.
.:
Mr. Puckett is POD1 following his left reverse total shoulder arthroplasty for proximal humerus fracture performed by Dr. May. He is resting comfortably in bed this morning, and states his pain is controlled at present. He has no questions or
concerns at this time.
Vital Signs and Labs
.
Vital Signs and Labs:
Lab Results
09/27/24 04:51
09/27/24 04:51
Temp Pulse Resp BP Pulse Ox
97.8 F 72 20 102/55 96
09/27/24 02:50 09/27/24 02:50 09/27/24 02:50 09/27/24 02:50 09/27/24 02:50
Physical Exam
-
Directed exam of the left upper extremity reveals surgical dressing with slight strikethrough of blood, otherwise dry and intact. Sling in place to LUE. Compartments soft and compressible. Patient able to wiggle fingers. Sensation intact to light
touch. Capillary refill <2 seconds.
[2024-09-27] MEDS: TYLENOL 1000 MG PO ×3 (07:44→21:56)
[2024-09-27] MEDS: LOW STRENGTH ASPIRIN 81 MG PO ×2 (07:45→20:02)
[2024-09-27] MEDS: LOPRESSOR PO (07:46)
[2024-09-27] MEDS: MIRALAX PO (07:53)
[2024-09-27] MEDS: VIBRAMYCIN 100 MG PO ×2 (07:54→20:02)
--- NOTE | 2024-09-27 08:20 | PTCARENOTE ---
Pt arrived on unit from PACU at 20:30 post L Reverse Total Shoulder Arthroplasty with left arm in a sling. Pt AOx3, bed in a low position call light in reach.
--- NOTE | 2024-09-27 10:57 | CM ---
Patient seen bedside.
IMM completed.
PT recommending skilled rehab.
Patient refusing skilled rehab, agreed to home care.
Options discussed, chose [facility].
Patients spouse will transport.
Plan: home with [facility] once stable.
--- NOTE | 2024-09-27 11:25 | VNURNOTE ---
Home Health Liaison spoke with patient to discuss [facility] nurse/therapy, visits, schedule and homebound status. Patient is agreeable and understands that visits at home will be 2-3 x per week to assess and teach medical management. He has had [facility]
services in the past. Patient is aware that [facility] will contact them for start of care in 1-2 days after discharge from .
[facility] referral completed in [facility].
--- NOTE | 2024-09-27 11:40 | W.PN.HOSP.TC ---
Today's Communication/Plan
-
await input from cardio
await pt and coming to an agreement on dc to home with [facility] vs SNF
Assessment / Plan
Assessment / Plan
Proximal Left Humerus Fracture
-Consulted Ortho
underwent surgical input 09/26 afternoon
reverse total shoulder arthroplasty
-Continue NWB and immobilization with sling
-Continue Tylenol, Oxycodone and Dilaudid for pain
Fall, possible Syncopal Episode
-Monitor on Telemetry
-Echo - limited study, but no gross abnormalities
-Check Orthostatic VS
BP111/58 supine, 119/74 sitting, 94/69 standing
Cardio consult appreciated. Await input regarding orthostatic BP results
Coronary Artery Disease s/p Stent
Essential Hypertension
-Continue metoprolol with hold parameters
Hyperlipidemia
-Patient is intolerant to statins
Hx Rectal Cancer s/p Chemotherapy and Radiation
Hx Lung Cancer s/p Radiation
reviewed plans with benton Champion. Requested ortho write analgesic meds
pt's would like him to go to rehab, pt is adamant that he wants too go home
DVT proph: SCDs
Code Status: Full Code
Anticipated Discharge: 24 - 48 hours
Subjective/Interval History
-
Date of Service: September 27, 2024
Awake, alert, denies significant shoulder pain
Objective Data
-
Labs:
Laboratory Results
09/27/24
04:51
WBC 9.6
Hgb 11.3 L
Hct 32.4 L
Plt Count 217
Sodium 139
Potassium 4.0
Chloride 106
Carbon Dioxide 23
BUN 16
Creatinine 0.8
Glucose 155 H
Calcium 8.4
Vital Signs:
Vital Signs
Temp Pulse Resp BP Pulse Ox
97.8 F 76 16 101/58 94
09/27/24 07:25 09/27/24 07:46 09/27/24 07:25 09/27/24 07:46 09/27/24 08:15
I&O
09/26/24 09/27/24 09/28/24
06:59 06:59 06:59
Intake Total 960 / 960 520 / 520
Output Total 500 / 500 700 / 700
Balance 460 / 460 -180 / -180
Review of Systems
-
History Source: Patient and Coordinated Provider
Constitutional: Denies Fever
EENT: Reports No Symptoms Reported
Respiratory: Reports No Symptoms
Cardiac: Reports No Symptoms
Abdomen/GI: Reports No Symptoms
Musculoskeletal: Denies Joint Pain (left shoulder pain reduced)
Physical Exam
-
General: Well Developed, Well Nourished and No Apparent Distress
HEENT: Normocephalic, Atraumatic and Moist Mucous Membranes
Respiratory: Clear to Auscultation; Negative Wheezes, Rales or Rhonchi
Cardiac: Regular Rhythm and S1/S2
GI: Soft, Nontender and Nondistended
Musculoskeletal: No Clubbing, No Cyanosis and No Edema
Neuro: Awake, Alert and Oriented
--- NOTE | 2024-09-27 13:26 | W.PN.CD ---
Addendum entered and electronically signed by Fred Hudson MD 09/27/24 14:39:
I saw and examined the patient.
The BEDSPREAD FOLDER's note was reviewed and I agree with the note.
Overall patient is feeling well postop. Stable on telemetry with no significant arrhythmias. Patient had some orthostatic blood pressure change which was asymptomatic when working with physical therapy. Blood pressure 119/74 while seated that
went to 94/64 standing. Unclear if orthostatic blood pressure changes contributed to patient's fall. Will need to monitor closely
-Encourage fluid intake
-Reduce metoprolol to 12.5 mg twice daily.
-Monitor orthostatics
Original Note:
Today's Communication / Plan
-
Tele stable. Orthos positive this AM, not checked prior. Encourage fluids (which I did. He has not been drinking as much as usual here)- can give IVF if needed. Otherwise, PT/OT, compression socks. Monitor orthos and can decrease metoprolol if
needed. He denies any dizziness with standing. I reminded him not to walk around without hospital staff for now.
Impression / Plan
-
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
(Dr. Serrano, [facility]), prediabetes, current smoker, and chronic lacunar infarct on CT presented with syncope and found to have a left humeral fracture.
Primary Candy Puller: Dr. Welch
Fall, possible syncope:
-EKG with first-degree AV block. Telemetry is stable.
-Echocardiogram 09/26/24: Very limited study, but probably normal global LV/RV systolic function.
-orthos positive this AM, not done prior to that: (SBP 119 sitting and 94 standing)- encourage fluids (which I did. He has not been drinking as much as usual here)- can give IVF if needed, PT/OT, compression socks. Monitor orthos and can decrease
metoprolol if needed. He denies any dizziness with standing. I reminded him not to walk around without hospital staff for now.
Humeral fracture, left:
-s/p reverse total shoulder arthroplasty 09/26/24
-post-op management per ortho
CAD
-Stable without CP
-2006: NSTEMI with BMS to dRCA ([facility])
-continue ASA 81 mg daily
HLD, statin intolerant
Adenocarcinoma of the left lung, s/p XRT, still present on chest CT in 2022
Colorectal cancer status post chemotherapy/XRT
Prediabetes
Current smoker, cessation recommended. Reviewed again today.
Lacunar infarct, chronic, seen on head CT
DATA:
Transthoracic echocardiogram, 07/2020:
CONCLUSIONS
Normal biventricular size and systolic function without regional wall motion
abnormality.
No significant valvular disease.
Normal echocardiogram.
No prior study available for comparison.
Physical Exam
Vital Signs/Labs
Vital Signs
Temp Pulse Resp BP Pulse Ox
97.9 F 92 16 105/58 96
09/27/24 11:25 09/27/24 11:25 09/27/24 11:25 09/27/24 11:25 09/27/24 11:25
09/26/24 09/27/24 09/28/24
06:59 06:59 06:59
Actual Weight 94.801 kg
09/27/24 04:51
09/27/24 04:51
Physical Exam
Constitutional: No acute distress
EENT: Anicteric
Cardiovascular: Rhythm & rate is regular
Respiratory: Respiratory effort normal, Crackles Absent and Rhonchi Absent
Neuro/Psych: Alert
Other: Skin (left incision site dressing CDI)
Data Reviewed
-
Date of Service: September 27, 2024
EKG: Other (SR)
Labs: Labs Reviewed by me
[2024-09-27] MEDS: LOPRESSOR 12.5 MG PO (20:03)
[2024-09-27] MEDS: XALATAN OPHTHALMIC SOLUTION 1 DROP BOTH EYES (21:57)
[2024-09-28 03:43] VITALS: BP 136/72
[2024-09-28 06:56] LABS: % Basophils 0.1 % (0-2); % Immature Granulocytes 0.7 % (0-0.5); % Lymphocytes 5.1 % (20.5-51.1); % Monocytes 8.5 % (1.7-9.3); % Neutrophils 85.6 % (42.2-75.2); Absolute Immature Granulocytes 0.1 10^3/uL (0-0.05); Absolute Lymphocytes 0.6 10^3/uL (1.2-3.4); Absolute Monocytes 1.1 10^3/uL (0.1-0.6); Absolute Neutrophils 10.8 10^3/uL (1.4-6.5); Hematocrit 29.7 % (39.0-52.0); Mean Corp Hgb Conc. 33.7 g/dL (33.0-37.0); Mean Corpuscular Hgb 32.4 pg (27.0-31.0); Mean Corpuscular Volume 96.1 fL (80.0-94.0); Mean Platelet Volume 11.6 fL (7.4-10.4); Nucleated Red Blood Cells % 0 % (-); Platelet Count 211 10^3/uL (130-400); Red Blood Cell Count 3.09 10^6/uL (4.70-6.10); Red Cell Dist. Width 13.2 % (11.5-14.5); White Blood Cell Count 12.6 10^3/uL (4.8-10.8)
[2024-09-28 08:10] VITALS: BP 133/72
[2024-09-28 09:33] VITALS: BP 118/71; BP 121/67; BP 124/67; PULSE 107; PULSE 84
[2024-09-28] MEDS: LOPRESSOR 12.5 MG PO (09:56)
[2024-09-28] MEDS: VIBRAMYCIN 100 MG PO (09:56)
[2024-09-28] MEDS: MIRALAX 17 GRAMS PO (09:57)
[2024-09-28] MEDS: TYLENOL 1000 MG PO (09:57)
[2024-09-28] MEDS: LOW STRENGTH ASPIRIN 81 MG PO (09:57)
--- NOTE | 2024-09-28 11:00 | PTCARENOTE ---
MD recommended SNF for patient. This nurse discussed SNF with patient and the advantages of going to a SNF vs. home. He states he will not go to a fpc facility. This nurse discussed the risks of going home. He stated he understood the
risks. He also requested a shower before going home. This nurse and FEEDER OPERATOR assisted patient to shower with shower chair. He did not report any dizziness with transfer or with shower. He did well transferring and assisting with getting dressed.
--- NOTE | 2024-09-28 11:00 | PTCARENOTE ---
MD recommended SNF for patient. This nurse discussed SNF with patient. He did not This nurse and WARDROBE COORDINATOR assisted patient to shower with shower chair. He did not report any dizziness with transfer or with shower. He did well transferring and assisting
with getting dressed.
[2024-09-28 11:07] LABS: Glycohemoglobin (HgbA1c) 5.5 % (4.0-5.6)
[2024-09-28 11:15] VITALS: BP 107/66
--- NOTE | 2024-09-28 14:01 | W.PN.HOSP.TC ---
Today's Communication/Plan
-
dc today
Assessment / Plan
Assessment / Plan
Proximal Left Humerus Fracture
-Consulted Ortho
underwent surgical input 09/26 afternoon
reverse total shoulder arthroplasty
-Continue NWB and immobilization with sling
-Continue Tylenol, for pain, has not required narcotic analgesics for pain
Fall, possible Syncopal Episode
-Monitor on Telemetry, no arrhythmia noted
-Echo - limited study, but no gross abnormalities
-Follow Orthostatic VS
BP111/58 supine, 119/74 sitting, 94/69 standing, previously. Today 124/67, 121/67, 118/71 with no symptoms
Cardio consult appreciated. Await input regarding orthostatic BP results
Coronary Artery Disease s/p Stent
Essential Hypertension
-Continue metoprolol with hold parameters
Hyperlipidemia
-Patient is intolerant to statins
Hx Rectal Cancer s/p Chemotherapy and Radiation
Hx Lung Cancer s/p Radiation
reviewed plans with [facility] 09/27
pt's would like him to go to rehab, pt is adamant that he wants to go home. Extensive discussion
DVT proph: SCDs
Showered today and no signs of dizziness, family states they have a shower chair at home
Code Status: Full Code
More than 30 minutes spent in discharge including
Final examination of the patient
Summarizing hospital stay
Instructions for continuing care to all relevant caregivers
Preparation of discharge records, prescriptions, and referral forms
Total time spent (in minutes): 45
Anticipated Discharge: Today
Subjective/Interval History
-
Date of Service: September 28, 2024
Feels well and absolutely refuses to go to a SNF. Long discussion with Sugey vaz in room, son Prince and on speaker phone. Unable to convince pt to go to a SNF.
Objective Data
-
Labs:
Laboratory Results
09/28/24
06:18
WBC 12.6 H
Hgb 10.0 L
Hct 29.7 L
Plt Count 211
Vital Signs:
Vital Signs
Temp Pulse Resp BP Pulse Ox
97.9 F 75 16 107/66 97
09/28/24 11:15 09/28/24 11:15 09/28/24 11:15 09/28/24 11:15 09/28/24 11:15
I&O
09/27/24 09/28/24 09/29/24
06:59 06:59 06:59
Intake Total 520 / 520 1320 / 1320
Output Total 700 / 700 950 / 950
Balance -180 / -180 370 / 370
Review of Systems
-
History Source: Patient and Coordinated Provider
Constitutional: Denies Fever
EENT: Reports No Symptoms Reported
Respiratory: Reports No Symptoms
Cardiac: Reports No Symptoms
Abdomen/GI: Reports No Symptoms
Musculoskeletal: Denies Joint Pain (left shoulder pain reduced)
Physical Exam
-
General: Well Developed, Well Nourished and No Apparent Distress
HEENT: Normocephalic, Atraumatic and Moist Mucous Membranes
Respiratory: Clear to Auscultation; Negative Wheezes, Rales or Rhonchi
Cardiac: Regular Rhythm and S1/S2
GI: Soft, Nontender and Nondistended
Musculoskeletal: No Clubbing, No Cyanosis and No Edema
Neuro: Awake, Alert and Oriented
--- NOTE | 2024-09-28 14:19 | W.DS.TRANS ---
DC Summary - Ordained Minister
-
Discharge Instructions:
Discharge Diagnosis/Procedures Left shoulder fracture
Diet Regular
Activity With assistance,With Walker,No strenuous
activity
Driving Restrictions No driving
Bathing Restrictions None
Other Services VN,PT
Instructions:
Stand-Alone Forms:
Changes to Home Medications: Yes
Discharge Medications:
DC Medications w/original date entered in [facility]
latanoprost 0.005 % eye drops 1 drp BOTH EYES HS Eye condition 07/16/21
ascorbic acid (vitamin C) 500 mg tablet (Vitamin C) 500 mg PO DAILYPRN PRN Supplement 04/20/22
coenzyme Q10 50 mg chewable tablet 50 mg PO DAILYPRN PRN Supplement 04/20/22
omega 2-hgm-qdv-fish oil 1,000 mg (120 mg-180 mg) capsule (Fish Oil) 1 cap PO DAILYPRN PRN Supplement 04/20/23
vitamin B complex 1 cap PO DAILYPRN PRN Supplement 04/20/23
cholecalciferol (vitamin D3) 25 mcg (1,000 unit) tablet 25 mcg PO DAILYPRN PRN Supplement 09/25/24
acetaminophen 500 mg tablet (Tylenol Extra Strength) 1,000 mg (2 x 500 mg) PO TID #0 tabs 09/28/24
aspirin 81 mg chewable tablet 81 mg PO BID #30 tabs 09/28/24
doxycycline hyclate 100 mg capsule 100 mg PO Q12 Infection #4 caps 09/28/24
metoprolol tartrate 25 mg tablet 12.5 mg (1/2 x 25 mg) PO BID Blood pressure #0 tabs 09/28/24
polyethylene glycol 3350 17 gram oral powder packet 17 g PO DAILY #0 ea 09/28/24
Home Medication Changes
2 more days of Doxy added
Aspirin for next 30 days
Pending Results: No
--- NOTE | 2024-09-28 14:49 | CM ---
Pt for discharge today
Met with pt and wide at bedside
[facility] to follow for HH needs
to transport home
Plan - home with [facility]
[2024-09-28 15:00] VITALS: BP 121/70
== END 2024-09-28 15:38 | disposition home health service (06) | DRG 483 ==
LOC: 2 SOUTH 20:00
PROVIDERS: Physician Assistant Medical; Student in an Organized Health Care Education/Training Program; ADMITTING PHYSICIAN Internal Medicine; ATTENDING PHYSICIAN Internal Medicine; CONSULT PHYSICIAN Internal Medicine Cardiovascular Disease; EMERGENCY PHYSICIAN Emergency Medicine; FAMILY PHYSICIAN Internal Medicine Geriatric Medicine; OTHER PHYSICIAN Orthopaedic Surgery Hand Surgery
PROC: 0RRK00Z Replacement of Left Shoulder Joint with Reverse Ball and Socket Synthetic Substitute, Open Approach (ICD-10-PCS; 2024-09-26)
DX: S42.212A Unspecified displaced fracture of surgical neck of left humerus, initial encounter for closed fracture (principal); R55 Syncope and collapse; W07.XXXA Fall from chair, initial encounter; Y93.89 Activity, other specified; Y92.007 Garden or yard of unspecified non-institutional (private) residence as the place of occurrence of the external cause; E78.00 Pure hypercholesterolemia, unspecified; I44.0 Atrioventricular block, first degree; R73.03 Prediabetes; I10 Essential (primary) hypertension; F17.210 Nicotine dependence, cigarettes, uncomplicated; I25.10 Atherosclerotic heart disease of native coronary artery without angina pectoris; Z87.442 Personal history of urinary calculi; Z85.828 Personal history of other malignant neoplasm of skin; I25.2 Old myocardial infarction; Z90.49 Acquired absence of other specified parts of digestive tract; Z85.118 Personal history of other malignant neoplasm of bronchus and lung; Z95.5 Presence of coronary angioplasty implant and graft; Z85.048 Personal history of other malignant neoplasm of rectum, rectosigmoid junction, and anus; Z92.21 Personal history of antineoplastic chemotherapy; Z92.3 Personal history of irradiation; Z88.0 Allergy status to penicillin; Z86.73 Personal history of transient ischemic attack (TIA), and cerebral infarction without residual deficits
CPT/HCPCS: 70450; 73020; 73030; 73070; 73200; 80048; 80053; 83036; 85025; 85027; 86850; 86900; 86901; 93005; 93306; 96374; 96376; 97116; 97162; 97167; 99285; C1713; C1776; Q9950

== ENCOUNTER → 2025-01-02 14:34 | Outpatient (REF) | payer OTHER, SELFPAY | LOC: RAD 14:34 | PROVIDERS: ATTENDING PHYSICIAN Internal Medicine; FAMILY PHYSICIAN Internal Medicine Geriatric Medicine | DX: R60.9 Edema, unspecified (principal); I73.9 Peripheral vascular disease, unspecified | CPT/HCPCS: 93970 ==

== ENCOUNTER → 2025-01-16 14:22 | Outpatient (REF) | payer OTHER, SELFPAY | LOC: RAD 14:22 | PROVIDERS: ATTENDING PHYSICIAN Internal Medicine; REFERRING PHYSICIAN Surgery Vascular Surgery | DX: I73.9 Peripheral vascular disease, unspecified (principal) | CPT/HCPCS: 93922; 93925 ==

== ENCOUNTER → 2025-07-20 10:50 | Outpatient (REF) | payer OTHER, SELFPAY ==
[2025-07-20 10:01] LABS: Glucose 116 mg/dl (70-99)
== END ==
LOC: PET 10:50
PROVIDERS: ATTENDING PHYSICIAN Radiology Radiation Oncology
DX: C34.12 Malignant neoplasm of upper lobe, left bronchus or lung (principal); C21.1 Malignant neoplasm of anal canal
CPT/HCPCS: 36415; 82947

== ENCOUNTER → 2025-08-13 13:25 | Outpatient (REF) | payer OTHER, SELFPAY | LOC: RAD 13:25 | PROVIDERS: ATTENDING PHYSICIAN Surgery Vascular Surgery; FAMILY PHYSICIAN Internal Medicine Geriatric Medicine | DX: I73.9 Peripheral vascular disease, unspecified (principal) | CPT/HCPCS: 93922; 93925 ==